=== PATIENT | female | born 1975 | race Caucasian/White ===

== ENCOUNTER 2017-09-01 06:52 | Emergency (ER) | payer BC ==
[~2017-09-01] VITALS: Ht 167.6 cm; Wt 82.4 kg
[~2017-09-01 06:52] MED LIST: ACIPHEX20 MG PO; DEXILANT60 MG PO; PERCOCET 5/31 TABLET PO; SYNTHROID25 MCG PO; SYNTHROID88 MCG PO
[2017-09-01 08:12] LABS: HEMATOCRIT 39.3 % (36.0-46.0); HEMOGLOBIN 13.2 G/DL (11.9-15.5); MCH 31.6 PG (29.0-34.0); MCHC 33.6 G/DL (30.0-36.0); PLATELET COUNT 301 K/uL (156-360); RBC DIS.WIDTH-CV 12.5 % (11.8-14.6); RBC DIS.WIDTH-SD 42.8 % (39-53); RED BLOOD COUNT 4.18 M/uL (3.80-5.20); WHITE BLOOD COUNT 9.1 K/uL (4.1-10.2)
[2017-09-01 08:21] LABS: CHLORIDE 107 mEq/L (99-109); POTASSIUM 4.1 mEq/L (3.7-5.4); SODIUM 139 mEq/L (136-147)
[2017-09-01 08:23] LABS: GLUCOSE 103 mg/dL (70-99)
[2017-09-01 08:25] LABS: TOTAL BILIRUBIN 0.2 mg/dL (0.0-1.0)
[2017-09-01 08:26] LABS: ALKALINE PHOSPHATASE 82 IU/L (3-129); CREATININE 0.8 mg/dL (0.6-1.3); GFR ESTIMATE (CALCULATED) > 59 mL/min/
[2017-09-01 08:28] LABS: AST (GOT) 12 IU/L (2-34); UREA NITROGEN (BUN) 16 mg/dL (9-23)
[2017-09-01 08:29] LABS: ALT (GPT) 12 IU/L (3-49)
[2017-09-01 08:32] LABS: APPEARANCE SL.HAZY ((CLEAR)); BILIRUBIN NEGATIVE; BLOOD NEGATIVE; COLOR YELLOW ((YELLOW)); GLUCOSE (STRIP) NEGATIVE; KETONES NEGATIVE; LEUKOCYTES NEGATIVE; NITRITE NEGATIVE; PROTEIN (STRIP) NEGATIVE; SPECIFIC GRAVITY 1.026 (1.000-1.030)
[2017-09-01 08:37] LABS: BACTERIA RARE /HPF; EPITHELIAL CELLS 2+ /HPF; MUCUS 3+ /LPF; RED BLOOD CELLS 0-5 /HPF (0-5); UCUL ADDED? NO; WHITE BLOOD CELLS 0-5 /HPF (0-5)
[2017-09-01 09:30] LABS: THYROTROPIN (TSH) 1.4 MIU/L (0.4-5.5)
[2017-09-01] MEDS ORDERED: MECLIZINE HCL25 MG PO (09:44)
[2017-09-01] MEDS ORDERED: BACLOFEN10 MG PO (09:44)
[2017-09-01 10:33] VITALS: BP 135/89
== END 2017-09-01 10:36 | disposition home or self-care (01) ==
LOC: EME 06:52
PROVIDERS: Nurse Practitioner Family
DX: R51 Headache (principal); R42 Dizziness and giddiness; H92.01 Otalgia, right ear; J30.2 Other seasonal allergic rhinitis; K21.9 Gastro-esophageal reflux disease without esophagitis; Z90.49 Acquired absence of other specified parts of digestive tract; Z88.1 Allergy status to other antibiotic agents; Z88.5 Allergy status to narcotic agent
CPT/HCPCS: 70450; 80053; 81003; 84443; 85027; 99281; 99284